=== PATIENT | female | born 1965 | race African-American/Black ===

== ENCOUNTER 2023-06-30 12:18 | Emergency (ER) | payer SELFPAY ==
[~2023-06-30] VITALS: Ht 167.6 cm; Wt 72.6 kg
[2023-06-30] MEDS ORDERED: SODIUM CHLORIDE FLUSH 10 ML SYR IV PRN (12:45)
[2023-06-30] MEDS ORDERED: SODIUM CHLORIDE 0.9% 1000ML 1,000 ML IV ONE ×2 (12:45→16:30)
[2023-06-30 13:04] LABS: BASOPHILS % 0.2 % (0.0-1.0); EOSINOPHILS % 0.5 % (0.0-6.0); HEMATOCRIT 28.9 % (34.2-44.1); HEMOGLOBIN 8.8 g/dL (12.0-16.0); LYMPHOCYTES # (AUTO) 1.4 (1.0-3.2); LYMPHOCYTES % 25.4 % (18.0-39.1); MEAN CORPUSCULAR HEMOGLOBIN 26.7 pg (28-32); MEAN CORPUSCULAR HGB CONC 30.4 g/dL (31-35); MEAN CORPUSCULAR VOLUME 87.6 fL (81-99); MONOCYTES # (AUTO) 0.3 (0.2-0.8); MONOCYTES % 6.1 % (4.4-11.3); NEUTROPHILS # (AUTO) 3.8 (2.1-6.9); NEUTROPHILS % 67.6 % (38.7-80.0); PLATELET COUNT 106 x10e3/uL (140-360); RED CELL DISTRIBUTION WIDTH 13.9 % (11.7-14.4)
[2023-06-30 13:26] LABS: ACETAMINOPHEN < 3.0 ug/mL (10-30); ALANINE AMINOTRANSFERASE 20 IU/L (0-55); ALBUMIN 3.7 g/dL (3.5-5.0); ALBUMIN/GLOBULIN RATIO 1.2 (0.8-2.0); ALKALINE PHOSPHATASE 71 IU/L (40-150); ANION GAP 14.3 mmol/L (8-16); BILIRUBIN,TOTAL 0.6 mg/dL (0.2-1.2); BLOOD UREA NITROGEN 42 mg/dL (7-26); BUN/CREATININE RATIO 21 (6-25); CALCIUM 9.2 mg/dL (8.4-10.2); CARBON DIOXIDE 20 mmol/L (22-29); CHLORIDE 114 mmol/L (98-107); CREATININE, SERUM 2.04 mg/dL (0.57-1.11); EST GLOMERULAR FILTRATION RATE 28 ML/MIN (>=60); ETHANOL < 10.0 mg/dL (0.0-10.0); GLUCOSE 181 mg/dL (74-118); POTASSIUM 4.3 mmol/L (3.5-5.1); SALICYLATE < 5.0 mg/dL (0-30); SODIUM 144 mmol/L (136-145); TOTAL PROTEIN 6.7 g/dL (6.5-8.1)
[2023-06-30 13:33] LABS: TROPONIN I < 0.001 ng/mL (0-0.300)
[2023-06-30 15:00] VITALS: O2SAT 100
== END 2023-06-30 17:01 | disposition left against medical advice (07) ==
LOC: ER 12:26
DX: R55 Syncope and collapse (principal); R42 Dizziness and giddiness; N17.9 Acute kidney failure, unspecified; W18.39XA Other fall on same level, initial encounter; Y99.0 Civilian activity done for income or pay
CPT/HCPCS: 36415; 70450; 71045; 80053; 80320; 80329; 83880; 84484; 85025; 94760; 99284